=== PATIENT | female | born 1960 | race Two or more races ===

== ENCOUNTER 2016-09-05 20:09 | Emergency (ER) | payer SELFPAY ==
[~2016-09-05] VITALS: Ht 157.5 cm; Wt 54.5 kg
[2016-09-05 20:27] VITALS: BP 126/74
== END 2016-09-06 00:20 | disposition left against medical advice (07) ==
LOC: ER 20:09
DX: Z53.21 Procedure and treatment not carried out due to patient leaving prior to being seen by health care provider (principal)